=== PATIENT | female | born 1990 | race Two or more races ===

== ENCOUNTER 2020-12-09 12:56 | Outpatient (CLI) | payer OTHER | END 2020-12-09 14:50 | disposition home or self-care (01) | LOC: NST 12:56 | PROVIDERS: ATTEND Obstetrics & Gynecology Maternal & Fetal Medicine | DX: Z34.83 Encounter for supervision of other normal pregnancy, third trimester (principal) ==

== ENCOUNTER → 2020-12-18 | Outpatient (CLI) | payer OTHER | END | disposition home or self-care (01) | LOC: NST 13:46 | PROVIDERS: ATTEND Obstetrics & Gynecology Maternal & Fetal Medicine | DX: Z34.83 Encounter for supervision of other normal pregnancy, third trimester (principal) ==

== ENCOUNTER 2020-12-23 13:00 | Inpatient (IN) | payer OTHER ==
[~2020-12-23] VITALS: Ht 154.9 cm; Wt 81.2 kg
[2021-01-08] MEDS ORDERED: PRENATAL TABLE1 EAC1 PO (16:36)
[2021-01-08] MEDS ORDERED: ALFALFA PO (16:37)
[2021-01-08] MEDS ORDERED: PEPCID AC20 MG PO (16:39)
[2021-01-09] MEDS ORDERED: ALFALFA250 MG (09:25)
== END 2021-01-12 13:21 | disposition home or self-care (01) | DRG 787 ==
LOC: OB/GYN 01-08 14:23 → LDR 01-08 14:23 → O/R 01-09 17:05 → OB/GYN 01-09 17:17
PROVIDERS: Obstetrics & Gynecology; ADMIT Obstetrics & Gynecology; ATTEND Obstetrics & Gynecology
PROC: 3E0P7VZ Introduction of Hormone into Female Reproductive, Via Natural or Artificial Opening (ICD-10-PCS; 2021-01-08)
PROC: 3E033VJ Introduction of Other Hormone into Peripheral Vein, Percutaneous Approach (ICD-10-PCS; 2021-01-08)
PROC: 4A1HXFZ Monitoring of Products of Conception, Cardiac Rhythm, External Approach (ICD-10-PCS; 2021-01-08)
PROC: 10907ZC Drainage of Amniotic Fluid, Therapeutic from Products of Conception, Via Natural or Artificial Opening (ICD-10-PCS; 2021-01-09)
PROC: 10D00Z1 Extraction of Products of Conception, Low, Open Approach (ICD-10-PCS; principal; 2021-01-09 15:00)
DX: O62.1 Secondary uterine inertia (principal); O41.03X0 Oligohydramnios, third trimester, not applicable or unspecified; O61.0 Failed medical induction of labor; Z3A.39 39 weeks gestation of pregnancy; Z37.0 Single live birth; Z20.822 Contact with and (suspected) exposure to COVID-19